=== PATIENT | male | born 1950 | race Two or more races ===

== ENCOUNTER 2017-08-29 13:08 | Outpatient (CLI) | payer OTHER | END 2017-08-29 13:12 | disposition home or self-care (01) | LOC: SONOGRAMA 13:08 | DX: M25.521 Pain in right elbow (principal) ==

== ENCOUNTER → 2021-08-11 | Emergency (ER) | payer OTHER ==
[~2021-08-11] VITALS: Ht 167.6 cm; Wt 102.1 kg
[~2021-08-11] MED LIST: CIPRO500 MG PO; INVOKANA100 MG PO; JANUMET 50-1,01 EACH PO; LANTUS SOL100 UNIT/1 SQ; LIPITOR20 MG PO; RAPAFLO4 MG PO; SYNTHROID88 MCG PO; TADALAFIL5 MG PO; TRULICITY0.75 MG/0. SQ
== END | disposition home or self-care (01) ==
LOC: ER 21:21
DX: N39.0 Urinary tract infection, site not specified (principal); R33.9 Retention of urine, unspecified

== ENCOUNTER 2025-04-09 13:05 | Outpatient (CLI) | payer OTHER | END 2025-04-09 13:08 | disposition home or self-care (01) | LOC: SONOGRAMA 13:05 | PROVIDERS: ATTEND Urology | DX: N40.0 Benign prostatic hyperplasia without lower urinary tract symptoms (principal); R91.1 Solitary pulmonary nodule ==